=== PATIENT | male | born 1980 | race African-American/Black ===

== ENCOUNTER 2018-09-20 18:30 | Emergency (ER) | payer SELFPAY ==
[~2018-09-20] VITALS: Ht 190.5 cm; Wt 102.0 kg
[2018-09-20 22:59] LABS: CLARITY URINE CLOUDY (CLEAR); COLOR URINE YELLOW (YELLOW); KETONES URINE NEGATIVE (NEGATIVE); LEUKOCYTE ESTERASE URINE NEGATIVE (NEGATIVE); NITRITE URINE NEGATIVE (NEGATIVE); OCCULT BLOOD URINE NEGATIVE (NEGATIVE); PH URINE 7.5 (4.5-8.0); PROTEIN URINE NEGATIVE (NEGATIVE); SPECIFIC GRAVITY URINE 1.014 (1.005-1.030)
[2018-09-20] MEDS ORDERED: ONDANSETRON HCL 4MG/2ML INJ IV STA (23:08)
[2018-09-20] MEDS ORDERED: SODIUM CHLORIDE 0.9% 1,000 ML IV ONE (23:08)
[2018-09-20] MEDS ORDERED: KETOROLAC 30MG/ML VIAL IV STA (23:08)
[2018-09-20 23:27] LABS: BASOPHILS % 0.9 % (0.0-2.0); EOSINOPHILS % 1.9 % (0.0-5.0); HEMOGLOBIN. 13.5 g/dL (14.0-18.0); LYMPHOCYTES % 67.6 % (20.0-50.0); MEAN CORPUSCULAR HEMOGLOBIN 30.2 pg (28.0-32.0); MEAN CORPUSCULAR VOLUME 89.6 fL (80.0-94.0); MEAN PLATELET VOLUME 8.5 fl (7.4-10.4); MONOCYTES % 10.4 % (2.0-8.0); NEUTROPHILS % 19.2 % (40.0-76.0); PLATELET 241 x1000/uL (130-400); RED BLOOD CELL COUNT 4.46 mill/uL (4.7-6.1); RED CELL DISTRIBUTION WIDTH 12.9 % (11.6-14.6)
[2018-09-20 23:33] LABS: CHLORIDE 104 mEq/L (98-107)
[2018-09-21 03:46] VITALS: BP 127/78
== END 2018-09-21 03:55 | disposition home or self-care (01) ==
LOC: ER 18:30
DX: K29.70 Gastritis, unspecified, without bleeding (principal); J02.9 Acute pharyngitis, unspecified
CPT/HCPCS: 36415; 76705; 80053; 81003; 83690; 85025; 96361; 96374; 96375; 99284; J1885; J2405; J7030

== ENCOUNTER 2020-03-13 14:12 | Emergency (ER) | payer MEDICAID ==
[~2020-03-13] VITALS: Ht 185.4 cm; Wt 100.0 kg
[2020-03-13 14:18] VITALS: BP 124/76
[2020-03-13] MEDS ORDERED: ACETAMINOPHEN 325MG TABLET PO STA (14:42)
[2020-03-13] MEDS ORDERED: VISCOUS LIDOCAINE 2% 15 ML UDC PO ONE (14:45)
[2020-03-13] MEDS ORDERED: MAGNESIUM/ALUMINUM HYDROXIDE/SIMETHICONE 30ML UDC PO ONE (14:45)
== END 2020-03-13 15:49 | disposition home or self-care (01) ==
LOC: ER 14:12
DX: J02.9 Acute pharyngitis, unspecified (principal); K21.9 Gastro-esophageal reflux disease without esophagitis; R00.0 Tachycardia, unspecified
CPT/HCPCS: 71045; 93005; 99284

== ENCOUNTER 2023-02-06 20:13 | Emergency (ER) | payer OTHER, MEDICAID ==
[~2023-02-06] VITALS: Ht 190.5 cm; Wt 112.8 kg
[2023-02-06 20:35] VITALS: O2SAT 99
[2023-02-06] MEDS ORDERED: LIDOCAINE HCL 1% 20ML VIAL (Pyxis) INJ INFIL ONE (22:45)
[2023-02-07] MEDS ORDERED: AMOX1TAB16 MT (00:42)
[2023-02-07 02:00] VITALS: BP 132/78; PULSE 69; RESP 18; TEMP 98.4
== END 2023-02-07 02:10 | disposition home or self-care (01) ==
LOC: ER 20:13
DX: L03.012 Cellulitis of left finger (principal)
CPT/HCPCS: 10060; 73140; 99283; J3490